=== PATIENT | male | born 1955 | race Two or more races ===

== ENCOUNTER 2016-09-04 09:26 | Inpatient (IN) | payer MEDICAID ==
[~2016-09-04] VITALS: Ht 172.7 cm; Wt 75.2 kg
[2016-09-04] MEDS ORDERED: SODIUM CHLORIDE 0.9% 1,000 ML IV ONE ×2 (09:48→12:00)
[2016-09-04] MEDS ORDERED: PROMETHAZINE HCL 25 MG/ML 1ML IV ONE (10:00)
[2016-09-04 10:04] LABS: Basophils # (auto) 0 uL; Basophils % (auto) 0.3 % (0.0-2.0); CONDITION Y; Eosinophils # (auto) 0 uL; Hematocrit 40.8 % (41.0-53.0); Hemoglobin 13.7 g/dL (13.5-17.5); Lymphocytes # (auto) 0.7 uL; Lymphocytes % (auto) 5.6 % (10.0-50.0); Mean Corpuscular Hemoglobin 31.7 pg (28.0-32.0); Mean Corpuscular Hgb Conc. 33.6 g/dL (32.0-36.0); Mean Corpuscular Volume 94.3 fL (80.0-100.0); Mean Platelet Volume 9.3 fL (7.4-10.4); Monocytes # (auto) 0.3 uL; Monocytes % (auto) 2.6 % (0.0-12.0); Neutrophils % (auto) 91.5 % (37.0-80.0); Platelet Count (auto) 389 10^3/uL (140-450); Red Cell Distribution Width 13.5 % (11.6-16.0); White Blood Cell 13.1 10^3/uL (4.4-10.8)
[2016-09-04] MEDS ORDERED: LIDOCAINE HCL 2% TOP JELLY 5ML TOP ONE (10:14)
[2016-09-04 10:28] LABS: Albumin 3.1 g/dL (3.4-5.0); Alkaline Phosphatase 52 U/L (45-117); Anion Gap 28 (5-15); Aspartate Aminotransferase 19 U/L (15-37); BUN/Creatinine Ratio 8.1; Bilirubin, Total 0.2 mg/dL (0.2-1.0); Blood Urea Nitrogen 77 mg/dL (7-18); Calcium 8.3 mg/dL (8.5-10.1); Carbon Dioxide 16 mmol/L (21-32); Chloride 92 mmol/L (98-107); GFR African American 7 mL/min; GFR Non-African American 6 mL/min; Glucose 80 mg/dL (74-106); Sodium 136 mmol/L (136-145); Total Protein 7.4 g/dL (6.4-8.2)
[2016-09-04 10:34] LABS: Potassium 5.7 mmol/L (3.5-5.1)
[2016-09-04] MEDS ORDERED: ALBUTEROL SULF 2.5 MG/0.5ML(0.5%) NEB SOLN NEB STA (10:36)
[2016-09-04] MEDS ORDERED: cefTRIAXone 1GM/50ML D5W 50 ML IV ONE (10:45)
[2016-09-04] MEDS ORDERED: SODIUM POLYSTYRENE SULF 15GM/60ML SUSP PR ONE (10:45)
[2016-09-04] MEDS ORDERED: InsuLIN REG 1unit/0.01ml Soln (100units/ml) IV ONE (10:45)
[2016-09-04] MEDS ORDERED: DEXTROSE (50%) 50ML SYRG IV ONE (10:45)
[2016-09-04] MEDS ORDERED: PROMETHAZINE HCL 25 MG/ML 1ML IV PRN (12:00)
[2016-09-04] MEDS ORDERED: TEMAZEPAM 15 MG CAP PO PRN (12:00)
[2016-09-04] MEDS ORDERED: SODIUM POLYSTYRENE SULF 15GM/60ML SUSP PO ONE (12:00)
[2016-09-04] MEDS ORDERED: LORazepam 0.5 MG TAB PO PRN (12:00)
[2016-09-04] MEDS ORDERED: MORPHINE SULF INJ 2 MG/ML SYRINGE 1ML IV PRN (12:00)
[2016-09-04] MEDS ORDERED: ACETAMINOPHEN 500 MG TAB PO PRN (12:00)
[2016-09-04] MEDS ORDERED: DEXTROSE (50%) 50ML SYRG IV PRN (12:00)
[2016-09-04] MEDS ORDERED: MORPHINE SULFATE 4 MG/ML SYRG IV PRN (12:00)
[2016-09-04] MEDS ORDERED: NITROGLYCERIN 0.4 MG SL TAB SL PRN (12:00)
[2016-09-04] MEDS: FAMOTIDINE (10MG/ML) 2ML VL IV SCH ×2 (12:44→21:13)
[2016-09-04] MEDS: SODIUM CHLORIDE 0.9% 1,000 ML IV SCH ×2 (12:58→18:51)
[2016-09-04] MEDS: metroNIDAZOLE 500MG/100ML 100 ML IV SCH ×2 (12:59→21:13)
[2016-09-04 14:30] VITALS: BP_SYST 115; BP_SYST 135; BP_DIAS 53; BP_DIAS 58
[2016-09-04 16:27] LABS: BUN/Creatinine Ratio 8.7; Calcium 7.7 mg/dL (8.5-10.1)
[2016-09-04] MEDS: ACCU-CHEK COMFORT CURVE STRIP VI SCH ×2 (17:22→22:32)
[2016-09-04] MEDS: InsuLIN REG 1unit/0.01ml Soln (100units/ml) SC SCH ×2 (17:49→22:32)
[2016-09-04] MEDS ORDERED: ONDA8TAB6 PO (17:58)
[2016-09-04] MEDS ORDERED: ONDA4SOL2 PO (17:58)
[2016-09-04] MEDS ORDERED: METF-371 PO (17:58)
[2016-09-04] MEDS ORDERED: SIMV-8 PO (18:02)
[2016-09-04] MEDS ORDERED: GABA-497 PO (18:02)
[2016-09-04] MEDS ORDERED: GLIP-116 PO (18:02)
[2016-09-04] MEDS ORDERED: ENAL2.5T PO (18:02)
[2016-09-04] MEDS ORDERED: INSLANTI SC (18:08)
[2016-09-04] MEDS ORDERED: ASPI81CH49 PO (18:08)
[2016-09-04 20:00] VITALS: BP 122/68
[2016-09-04 21:57] VITALS: BP 122/68
[2016-09-04 22:12] LABS: Urine Bilirubin Negative (Negative); Urine Blood 1+ /uL (Negative); Urine Color Yellow (Yellow); Urine Glucose 2+ mg/dL (Normal); Urine Ketone 1+ (Negative); Urine Nitrite Negative (Negative); Urine RBC <1 /hpf (0 - 3); Urine Squamous Epithelial Cell FEW /hpf (<5); Urine Urobilinogen Normal (Negative)
[2016-09-05] MEDS: SODIUM CHLORIDE 0.9% 1,000 ML IV SCH ×4 (01:55→17:10)
[2016-09-05] MEDS: HYDROcodone-ACET 5/325MG TAB PO PRN (02:48)
[2016-09-05 04:58] VITALS: BP 104/59
[2016-09-05] MEDS: metroNIDAZOLE 500MG/100ML 100 ML IV SCH ×3 (05:18→22:03)
[2016-09-05 05:28] LABS: Basophils # (auto) 0 uL; Basophils % (auto) 0.4 % (0.0-2.0); CONDITION Y; DEFINITIVE SEE PRINTOUT; Eosinophils # (auto) 0 uL; Eosinophils % (auto) 0.2 % (0.0-7.0); Hematocrit 35.1 % (41.0-53.0); Hemoglobin 11.9 g/dL (13.5-17.5); Lymphocytes # (auto) 1.9 uL; Lymphocytes % (auto) 15.9 % (10.0-50.0); Mean Corpuscular Hemoglobin 31.6 pg (28.0-32.0); Mean Corpuscular Hgb Conc. 33.8 g/dL (32.0-36.0); Mean Corpuscular Volume 93.5 fL (80.0-100.0); Mean Platelet Volume 9.1 fL (7.4-10.4); Monocytes # (auto) 1.6 uL; Monocytes % (auto) 13.4 % (0.0-12.0); Neutrophils # (auto) 8.5 uL; Neutrophils % (auto) 70.1 % (37.0-80.0); Platelet Count (auto) 324 10^3/uL (140-450); White Blood Cell 12.1 10^3/uL (4.4-10.8)
[2016-09-05 06:19] LABS: Cholesterol 74 mg/dL (< 200); HDL Cholesterol 41 mg/dL (40-59); LDL Cholesterol 33 mg/dL (< 100); Triglycerides 50 mg/dL (< 150)
[2016-09-05 06:22] LABS: Albumin 2.7 g/dL (3.4-5.0); BUN/Creatinine Ratio 8.9; Bilirubin, Total 0.1 mg/dL (0.2-1.0); Calcium 7.2 mg/dL (8.5-10.1); Potassium 4.2 mmol/L (3.5-5.1); Total Protein 5.7 g/dL (6.4-8.2)
[2016-09-05] MEDS: ACCU-CHEK COMFORT CURVE STRIP VI SCH ×4 (06:35→22:10)
[2016-09-05] MEDS: InsuLIN REG 1unit/0.01ml Soln (100units/ml) SC SCH ×4 (06:36→22:00)
[2016-09-05 09:00] VITALS: BP 125/64
[2016-09-05] MEDS: FAMOTIDINE (10MG/ML) 2ML VL IV SCH ×2 (09:30→22:04)
[2016-09-05] MEDS ORDERED: PANTOPRAZOLE SODIUM 40 MG/10 ML VIAL IV SCH (10:00)
[2016-09-05 13:00] VITALS: BP 160/75
[2016-09-05 17:00] VITALS: BP 177/88
[2016-09-05] MEDS ORDERED: amLODIPine BESYLATE 5 MG TAB PO ONE (18:00)
[2016-09-05] MEDS: ASPirin 81 mg TAB PO SCH (18:07)
[2016-09-05] MEDS: GABAPENTIN 300 MG CAP PO SCH (18:07)
[2016-09-05] MEDS: hydrALAZINE HCL 20 MG/ML VL IV PRN (18:07)
[2016-09-05 18:50] VITALS: BP 134/63
[2016-09-05 20:00] VITALS: BP 141/73
[2016-09-05] MEDS ORDERED: metFORMIN HYDROCHLORIDE 850 MG TAB PO SCH (22:00)
[2016-09-05] MEDS: ATORVASTATIN 20 MG TAB PO SCH (22:04)
[2016-09-06] MEDS: HYDROcodone-ACET 5/325MG TAB PO PRN ×2 (02:01→22:48)
[2016-09-06] MEDS: SODIUM CHLORIDE 0.9% 1,000 ML IV SCH (05:00)
[2016-09-06 05:21] VITALS: BP 133/72
[2016-09-06] MEDS: metroNIDAZOLE 500MG/100ML 100 ML IV SCH ×2 (05:27→12:03)
[2016-09-06 06:27] LABS: Basophils # (auto) 0.1 uL; Basophils % (auto) 0.7 % (0.0-2.0); CONDITION Y; Eosinophils # (auto) 0.2 uL; Eosinophils % (auto) 2.6 % (0.0-7.0); Hematocrit 37.7 % (41.0-53.0); Hemoglobin 12.9 g/dL (13.5-17.5); Lymphocytes # (auto) 1.2 uL; Lymphocytes % (auto) 13.6 % (10.0-50.0); Mean Corpuscular Hemoglobin 31.8 pg (28.0-32.0); Mean Corpuscular Hgb Conc. 34.1 g/dL (32.0-36.0); Mean Corpuscular Volume 93.2 fL (80.0-100.0); Mean Platelet Volume 8.9 fL (7.4-10.4); Neutrophils # (auto) 6.3 uL; Neutrophils % (auto) 72.1 % (37.0-80.0); Platelet Count (auto) 291 10^3/uL (140-450); Red Cell Distribution Width 13.4 % (11.6-16.0); White Blood Cell 8.8 10^3/uL (4.4-10.8)
[2016-09-06] MEDS: ACCU-CHEK COMFORT CURVE STRIP VI SCH ×4 (06:38→22:00)
[2016-09-06 06:53] LABS: BUN/Creatinine Ratio 8.8; Calcium 6.5 mg/dL (8.5-10.1)
[2016-09-06] MEDS: InsuLIN REG 1unit/0.01ml Soln (100units/ml) SC SCH ×4 (07:03→22:40)
[2016-09-06 08:00] VITALS: BP 177/88
[2016-09-06 08:57] VITALS: BP 164/76
[2016-09-06] MEDS: amLODIPine BESYLATE 5 MG TAB PO SCH (10:29)
[2016-09-06] MEDS: FAMOTIDINE (10MG/ML) 2ML VL IV SCH (10:29)
[2016-09-06] MEDS: ASPirin 81 mg TAB PO SCH (10:29)
[2016-09-06] MEDS: GABAPENTIN 300 MG CAP PO SCH (10:29)
[2016-09-06 11:47] LABS: Lactic Acid w/Reflex 2.2 mmol/L (0.4-2.0)
[2016-09-06] MEDS: hydrALAZINE HCL 20 MG/ML VL IV PRN (12:16)
[2016-09-06 12:23] LABS: REFLEX LACTIC ACID YES OR NO YES
[2016-09-06] MEDS ORDERED: DEXTROSE (50%) 50ML SYRG IV PRN (12:30)
[2016-09-06 13:00] VITALS: BP 190/90
[2016-09-06] MEDS: SODIUM BICARBONATE 50ML VIAL 50 ML in SOD CHL 0.45% 1,000 ML IV SCH ×2 (13:52→17:30)
[2016-09-06 17:00] VITALS: BP 132/73
[2016-09-06 22:00] VITALS: BP 145/64
[2016-09-06] MEDS: ATORVASTATIN 20 MG TAB PO SCH (22:47)
[2016-09-07] MEDS: SODIUM BICARBONATE 50ML VIAL 50 ML in SOD CHL 0.45% 1,000 ML IV SCH ×3 (00:29→13:52)
[2016-09-07 05:00] VITALS: BP 139/76
[2016-09-07 05:32] LABS: Albumin 2.7 g/dL (3.4-5.0); BUN/Creatinine Ratio 8.5; Bilirubin, Total 0.3 mg/dL (0.2-1.0); Calcium 6.7 mg/dL (8.5-10.1); Potassium 3.6 mmol/L (3.5-5.1); Total Protein 5.7 g/dL (6.4-8.2)
[2016-09-07 06:06] LABS: Prostate Specific Antigen 1.1 ng/mL (0.0-4.0)
[2016-09-07] MEDS: InsuLIN REG 1unit/0.01ml Soln (100units/ml) SC SCH ×4 (07:00→22:30)
[2016-09-07] MEDS: ACCU-CHEK COMFORT CURVE STRIP VI SCH ×4 (07:25→22:30)
[2016-09-07 08:00] VITALS: BP 190/90
[2016-09-07 08:06] LABS: PSA Free 0.34 ng/mL
[2016-09-07 08:38] VITALS: BP 152/86
[2016-09-07] MEDS ORDERED: FAMOTIDINE (10MG/ML) 2ML VL IV SCH (10:00)
[2016-09-07] MEDS: GABAPENTIN 300 MG CAP PO SCH (10:48)
[2016-09-07] MEDS: ASPirin 81 mg TAB PO SCH (10:48)
[2016-09-07] MEDS: amLODIPine BESYLATE 5 MG TAB PO SCH (10:48)
[2016-09-07 13:15] VITALS: BP 154/81
[2016-09-07 16:29] VITALS: BP 144/94
[2016-09-07 21:34] VITALS: BP_SYST 180; BP_SYST 191; BP_DIAS 90; BP_DIAS 94
[2016-09-07] MEDS: PANTOPRAZOLE 40 MG TAB PO SCH (22:29)
[2016-09-07] MEDS: ATORVASTATIN 20 MG TAB PO SCH (22:31)
[2016-09-08 05:11] VITALS: BP 153/76
[2016-09-08 05:59] LABS: Basophils # (auto) 0.1 uL; Basophils % (auto) 0.8 % (0.0-2.0); CONDITION Y; Eosinophils # (auto) 0.4 uL; Eosinophils % (auto) 5.7 % (0.0-7.0); Hematocrit 37.3 % (41.0-53.0); Hemoglobin 12.7 g/dL (13.5-17.5); Lymphocytes # (auto) 1.7 uL; Lymphocytes % (auto) 22.8 % (10.0-50.0); Mean Corpuscular Hemoglobin 31.6 pg (28.0-32.0); Mean Corpuscular Hgb Conc. 34.1 g/dL (32.0-36.0); Mean Corpuscular Volume 92.9 fL (80.0-100.0); Mean Platelet Volume 8.9 fL (7.4-10.4); Monocytes # (auto) 0.9 uL; Monocytes % (auto) 12.4 % (0.0-12.0); Neutrophils # (auto) 4.3 uL; Neutrophils % (auto) 58.3 % (37.0-80.0); Platelet Count (auto) 325 10^3/uL (140-450); Red Cell Distribution Width 13.4 % (11.6-16.0); White Blood Cell 7.4 10^3/uL (4.4-10.8)
[2016-09-08 06:03] LABS: Albumin 2.7 g/dL (3.4-5.0); BUN/Creatinine Ratio 9.4; Magnesium 1.6 mg/dL (1.6-2.6); Potassium 3.8 mmol/L (3.5-5.1)
[2016-09-08 06:07] LABS: Bilirubin, Total 0.4 mg/dL (0.2-1.0); Total Protein 5.9 g/dL (6.4-8.2)
[2016-09-08 06:44] LABS: INR 1.05 (0.9-1.15); Partial Thromboplastin Time 27.2 sec (22.64-33.71); Prothrombin Time 11.4 sec (9.37-12.3)
[2016-09-08] MEDS: InsuLIN REG 1unit/0.01ml Soln (100units/ml) SC SCH ×5 (07:00→23:30)
[2016-09-08] MEDS: ACCU-CHEK COMFORT CURVE STRIP VI SCH ×5 (07:00→23:30)
[2016-09-08 08:00] VITALS: BP 158/80
[2016-09-08 08:25] VITALS: BP 158/80
[2016-09-08] MEDS: ASPirin 81 mg TAB PO SCH (10:00)
[2016-09-08] MEDS: PANTOPRAZOLE 40 MG TAB PO SCH ×3 (10:00→21:44)
[2016-09-08] MEDS: GABAPENTIN 300 MG CAP PO SCH ×2 (10:00→13:51)
[2016-09-08] MEDS ORDERED: SODIUM BICARBONATE 50ML VIAL 50 ML in SOD CHL 0.45% 1,000 ML IV SCH (10:30)
[2016-09-08] MEDS ORDERED: D5W/SOD CHL 0.45% 1,000 ML IV SCH ×2 (10:45→16:00)
[2016-09-08] MEDS ORDERED: LIDOCAINE VISCOUS 2% 15ML UD ONE (11:27)
[2016-09-08] MEDS ORDERED: SODIUM CHLORIDE LOCK 10 ML ONE (11:27)
[2016-09-08] MEDS ORDERED: NALOXONE HCL 0.4 MG/ML VIAL ONE (11:27)
[2016-09-08] MEDS ORDERED: FLUMAZENIL 0.1 MG/ML INJ 10ML MDV IV ONE (11:27)
[2016-09-08] MEDS ORDERED: MIDAZOLAM HCL 5 MG/ML-1ML VIAL ONE (11:28)
[2016-09-08] MEDS ORDERED: fentaNYL CITRATE 100 MCG/2 ML VL ONE (11:28)
[2016-09-08] MEDS ORDERED: diphenhdrAMINE HCL 50 MG/1 ML VL ONE (11:28)
[2016-09-08] MEDS ORDERED: MAGNESIUM OXIDE 400 MG TAB PO ONE (11:30)
[2016-09-08] MEDS ORDERED: LABETALOL HCL 5 MG/ML 4ML SYRINGE IV ONE (11:59)
[2016-09-08 12:13] VITALS: BP 186/98
[2016-09-08] MEDS: hydrALAZINE HCL 20 MG/ML VL IV PRN (12:33)
[2016-09-08] MEDS: amLODIPine BESYLATE 5 MG TAB PO SCH (13:49)
[2016-09-08 17:00] VITALS: BP 142/70
[2016-09-08] MEDS ORDERED: InsuLIN REG 1unit/0.01ml Soln (100units/ml) IV ONE (18:45)
[2016-09-08] MEDS ORDERED: DEXTROSE (50%) 50ML SYRG IV PRN (18:45)
[2016-09-08] MEDS: SOD CHL 0.45% 1,000 ML IV SCH (18:57)
[2016-09-08] MEDS: ATORVASTATIN 20 MG TAB PO SCH (21:46)
[2016-09-08 22:00] VITALS: BP 144/74
[2016-09-09 02:51] LABS: Hemoglobin 11.7 g/dL (13.5-17.5)
[2016-09-09 03:08] LABS: Albumin 2.7 g/dL (3.4-5.0); BUN/Creatinine Ratio 11.6; Calcium 6.7 mg/dL (8.5-10.1); Magnesium 1.6 mg/dL (1.6-2.6); Potassium 3.4 mmol/L (3.5-5.1)
[2016-09-09 03:11] LABS: Bilirubin, Total 0.3 mg/dL (0.2-1.0); Total Protein 6.2 g/dL (6.4-8.2)
[2016-09-09] MEDS: InsuLIN REG 1unit/0.01ml Soln (100units/ml) SC SCH ×3 (04:00→12:10)
[2016-09-09] MEDS: ACCU-CHEK COMFORT CURVE STRIP VI SCH ×3 (04:12→11:58)
[2016-09-09] MEDS: SOD CHL 0.45% 1,000 ML IV SCH ×2 (04:12→10:45)
[2016-09-09 05:00] VITALS: BP 141/83
[2016-09-09 09:00] VITALS: BP 157/84
[2016-09-09] MEDS: PANTOPRAZOLE 40 MG TAB PO SCH (11:55)
[2016-09-09] MEDS: GABAPENTIN 300 MG CAP PO SCH (11:55)
[2016-09-09] MEDS: ASPirin 81 mg TAB PO SCH (11:55)
[2016-09-09] MEDS: amLODIPine BESYLATE 5 MG TAB PO SCH (11:56)
[2016-09-09] MEDS ORDERED: POTASSIUM CHL 20 Meq TABLET PO ONE (12:30)
[2016-09-09 13:00] VITALS: BP_SYST 121; BP_SYST 122; BP_DIAS 59; BP_DIAS 67
[2016-09-09] MEDS ORDERED: MAGNESIUM OXIDE 400 MG TAB PO ONE (13:15)
[2016-09-09] MEDS ORDERED: PANT40T PO (13:19)
[2016-09-09] MEDS ORDERED: AML5T PO (13:19)
[2016-09-09 14:04] VITALS: BP 121/59
== END 2016-09-09 14:40 | disposition home or self-care (01) | DRG 241 ==
LOC: ER 09:26 → TELE 09:27 → TELE-E-ADS 14:33 → TELE-EAST 17:37 → EAST 09-09 01:18
PROVIDERS: ADMIT Internal Medicine; ATTEND Internal Medicine
PROC: 0DB68ZX Excision of Stomach, Via Natural or Artificial Opening Endoscopic, Diagnostic (ICD-10-PCS; principal; 2016-09-08 11:50)
DX: K29.70 Gastritis, unspecified, without bleeding (principal); N17.0 Acute kidney failure with tubular necrosis; K85.90 Acute pancreatitis without necrosis or infection, unspecified; E87.0 Hyperosmolality and hypernatremia; K25.9 Gastric ulcer, unspecified as acute or chronic, without hemorrhage or perforation; K29.80 Duodenitis without bleeding; R91.1 Solitary pulmonary nodule; E87.2 Acidosis; E11.21 Type 2 diabetes mellitus with diabetic nephropathy; E87.5 Hyperkalemia; K52.9 Noninfective gastroenteritis and colitis, unspecified; I12.9 Hypertensive chronic kidney disease with stage 1 through stage 4 chronic kidney disease, or unspecified chronic kidney disease; N18.9 Chronic kidney disease, unspecified; E11.65 Type 2 diabetes mellitus with hyperglycemia; E11.22 Type 2 diabetes mellitus with diabetic chronic kidney disease; E87.6 Hypokalemia; E78.5 Hyperlipidemia, unspecified; Z87.442 Personal history of urinary calculi; Z83.3 Family history of diabetes mellitus; Z80.9 Family history of malignant neoplasm, unspecified
CPT/HCPCS: 36415; 43239; 71010; 74176; 76775; 80048; 80053; 80061; 81001; 82150; 82270; 82378; 82550; 82570; 82947; 82962; 83036; 83605; 83690; 83735; 84132; 84154; 84300; 84484; 84550; 85014; 85018; 85025; 85610; 85652; 85730; 86141; 87040; 87086; 87493; 88342; 93005; 93306; 94640; 96361; 96365; 96366; 96375; J0696; J1815; J2250; J3490